=== PATIENT | male | born 1960 | race Caucasian/White ===

== ENCOUNTER → 2016-08-05 | Outpatient (CLI) | payer OTHER | LOC: CIMAGING 15:52 | PROVIDERS: ATTEND Family Medicine | DX: R06.2 Wheezing (principal) | CPT/HCPCS: 71020-PO ==

== ENCOUNTER 2018-05-25 10:23 | Emergency (ER) | payer OTHER ==
--- NOTE | 2018-05-25 10:37 | EDPHY ---
H & P Stated Complaint: L anterior chest wall pain x 10 days Time Seen by Provider: 05/25/18 10:33 HPI/ROS: CHIEF COMPLAINT: Left-sided chest pain HISTORY OF PRESENT ILLNESS: The patient presents to the ED for evaluation of 10 days of sharp left-sided chest pain. The patient describes a pain in his substernal area radiating around to the back. The patient saw his primary care provider who diagnosed him with a intracostal nerve irritation. He has been taking Tylenol and ibuprofen without improvement of his symptoms. The patient states there is a positional component as well as a pleuritic component to his pain. The patient denies any abdominal pain. He denies any complaints of rash. He denies additional acute complaints. REVIEW OF SYSTEMS: A comprehensive 10 point review of systems is otherwise negative aside from elements mentioned in the history of present illness. Source: Patient Exam Limitations: No limitations - Medical/Surgical History Hx Asthma: No Hx Chronic Respiratory Disease: No Hx Diabetes: No Hx Cardiac Disease: No Hx Renal Disease: No Hx Cirrhosis: No Hx Alcoholism: No Hx HIV/AIDS: No Hx Splenectomy or Spleen Trauma: No Other PMH: sinus surgs. anxiety - Social History Smoking Status: Never smoked - Physical Exam Exam: General Appearance: Alert, no distress Eyes: Pupils equal and round no pallor or injection ENT, Mouth: Mucous membranes moist Respiratory: There are no retractions, lungs are clear to auscultation Cardiovascular: Regular rate and rhythm Gastrointestinal: Abdomen is soft and nontender, no masses, bowel sounds normal Neurological: A&O, normal motor function, normal sensory exam, normal cranial nerves Skin: Warm and dry, no rashes Musculoskeletal: Neck is supple nontender Extremities: symmetrical, full range of motion Psychiatric: Patient is oriented X 3, there is no agitation Constitutional: Initial Vital Signs Temperature (C) 36.7 C 05/25/18 10:33 Heart Rate 67 05/25/18 10:33 Respiratory Rate 16 05/25/18 10:33 Blood Pressure 133/84 H 05/25/18 10:33 O2 Sat (%) 97 05/25/18 10:33 O2 Delivery Mode Room Air Allergies/Adverse Reactions: Sulfa (Sulfonamide Antibiotics) Allergy (Verified 05/10/15 12:11) Home Medications: Medication Instructions Recorded Klonopin PRN 06/26/13 Clonazepam 05/25/18 Gabapentin [Neurontin 300 MG (*)] 300 mg PO AD PRN #40 cap 05/25/18 Medical Decision Making - Diagnostics EKG Interpretation: EKG: Complete interpretation has been separately recorded in the [facility] archive. Summary impression: Sinus rhythm, rate 66, nonspecific T-wave changes noted in the anterior precordial leads Imaging Results: Imaging Impressions Chest X-Ray 05/25/18 10:37 Impression: 1. Mild increase in interstitial markings at the lung bases probably related to fibrotic change or subsegmental atelectasis. Interstitial infiltrates are felt to be less likely. Chest/Thorax CTA 05/25/18 11:41 Impression: 1. No evidence of pulmonary embolus using CT protocol. 2. Bibasilar subsegmental atelectasis. Findings discussed with Dajuan Mosley M.D. at 12:09 hour, 05/25/2018. ED Course/Re-evaluation: Patient presents the ED with 10 days of sharp left-sided chest pain. The patient was diagnosed with a intracostal nerve irritation by his primary care provider. He has been taking medications without improvement. He presents to the ED today complaining of worsening symptoms. Given the slight pleuritic component to the patient's pain a D-dimer was checked and found to be slightly elevated. Follow-up CT pulmonary angiogram demonstrates no evidence of a PE or other intrathoracic abnormality to explain the patient's pain. The patient's EKG demonstrates no evidence of ischemia in the patient's troponin is negative. The patient's pain certainly seems to be musculoskeletal or peripheral nerve based. The patient will be given a prescription for Neurontin to see if that improves the neurogenic type pain he is experiencing. The patient is advised to continue to follow up with his primary care provider for any ongoing symptoms. Differential Diagnosis: Differential diagnosis considered in the emergency department includes pulmonary embolism, aortic dissection, pneumonia, pneumothorax, acute coronary syndrome, pericarditis - Data Points Laboratory Results: Laboratory Results 05/25/18 10:37 05/25/18 10:37 05/25/18 05/25/18 05/25/18 10:37 10:37 10:37 WBC 7.64 10^3/uL 10^3/uL (3.80-9.50) RBC 4.21 10^6/uL L 10^6/uL (4.40-6.38) Hgb 13.2 g/dL L g/dL (13.7-17.5) Hct 39.4 % L % (40.0-51.0) MCV 93.6 fL fL (81.5-99.8) MCH 31.4 pg pg (27.9-34.1) MCHC 33.5 g/dL g/dL (32.4-36.7) RDW 13.3 % % (11.5-15.2) Plt Count 232 10^3/uL 10^3/uL (150-400) MPV 8.4 fL L fL (8.7-11.7) Neut % (Auto) 55.0 % % (39.3-74.2) Lymph % (Auto) 24.6 % % (15.0-45.0) [place] % (Auto) 13.0 % % (4.5-13.0) Eos % (Auto) 5.4 % % (0.6-7.6) Baso % (Auto) 1.2 % % (0.3-1.7) Nucleat RBC Rel Count 0.0 % % (0.0-0.2) Absolute Neuts (auto) 4.21 10^3/uL 10^3/uL (1.70-6.50) Absolute Lymphs (auto) 1.88 10^3/uL 10^3/uL (1.00-3.00) Absolute Monos (auto) 0.99 10^3/uL H 10^3/uL (0.30-0.80) Absolute Eos (auto) 0.41 10^3/uL H 10^3/uL (0.03-0.40) Absolute Basos (auto) 0.09 10^3/uL 10^3/uL (0.02-0.10) Absolute Nucleated RBC 0.00 10^3/uL 10^3/uL (0-0.01) Immature Gran % 0.8 % % (0.0-1.1) Immature Gran # 0.06 10^3/uL 10^3/uL (0.00-0.10) D-Dimer 0.52 ug/mLFEU H ug/mLFEU (0.00-0.50) Sodium 136 mEq/L mEq/L (135-145) Potassium 3.6 mEq/L mEq/L (3.5-5.2) Chloride 103 mEq/L mEq/L (97-110) Carbon Dioxide 28 mEq/l mEq/l (22-31) Anion Gap 5 mEq/L L mEq/L (6-14) BUN 24 mg/dL H mg/dL (7-23) Creatinine 0.9 mg/dL mg/dL (0.7-1.3) Estimated GFR > 60 Glucose 75 mg/dL mg/dL (70-100) Calcium 8.5 mg/dL mg/dL (8.5-10.4) Troponin I < 0.012 ng/mL ng/mL (0.000-0.034) Departure - Departure Disposition: Home, Routine, Self-Care Clinical Impression: Chest wall pain Condition: Good Instructions: Chest Wall Pain (ED) Additional Instructions: 1. The workup in the emergency department today demonstrates no evidence of a heart attack, blood clot, collapsed lung or other obvious abnormality. 2. I do believe the you are having a nerve based irritation causing her symptoms. Please be on the lookout for rash as shingles can present initially with pain. 3. Please try Neurontin for your pain. 4. Please follow-up with your primary care provider as scheduled. Referrals: Shelbi Harden [Primary Care Provider] - As per Instructions Prescriptions: Gabapentin [Neurontin 300 MG (*)] 300 mg PO AD PRN #40 cap PRN Reason: for pain
[2018-05-25 10:49] LABS: PLATELET COUNT 232 10^3/uL (150-400)
[2018-05-25] MEDS ORDERED: IOPAMIDOL (ISOVUE 370) 100 ML BTL IV ONE (11:47)
--- NOTE | 2018-05-25 11:48 | CPEKG ---
Test Reason : OPEN Blood Pressure : / mmHG Vent. Rate : 066 BPM Atrial Rate : 066 BPM P-R Int : 149 ms QRS Dur : 105 ms QT Int : 400 ms P-R-T Axes : 039 -34 095 degrees QTc Int : 420 ms Sinus rhythm LVH with secondary repolarization abnormality Confirmed by Dajuan Mosley ([id number]) on 05/25/2018 11:47:46 AM Referred By: Confirmed By:Dajuan Mosley
[2018-05-25 12:32] VITALS: BP 120/81
== END 2018-05-25 12:31 | disposition home or self-care (01) ==
DX: R07.89 Other chest pain (principal); G58.0 Intercostal neuropathy; F41.9 Anxiety disorder, unspecified; Z88.2 Allergy status to sulfonamides
CPT/HCPCS: Q9967